=== PATIENT | male | born 1965 | race Caucasian/White ===

== ENCOUNTER 2024-05-26 10:23 | Outpatient (OUT) | payer OTHER, SELFPAY | END 2024-05-26 10:24 | disposition home or self-care (01) | LOC: PST 10:23 | PROVIDERS: Visit Provider Surgery | DX: Z12.11 Encounter for screening for malignant neoplasm of colon (principal) ==

== ENCOUNTER 2024-06-16 06:15 | Day surgery (SDC) | payer OTHER, SELFPAY ==
[2024-06-16 06:25] VITALS: BP 141/99; PULSE 91; TEMP 36.3; O2SAT 95; BMI 27.4
[2024-06-16] MEDS: 0.9 % SODIUM CHLORIDE 500 ML 50 ML IV ×2 (06:56→07:41)
[2024-06-16 08:00] VITALS: BP 112/65; PULSE 79; TEMP 36.9; O2SAT 97
--- NOTE | 2024-06-16 08:03 | W.PM.PROCNOT ---
Date of procedure: 06/16/24 Pre-op diagnosis: screening colonoscopy Post-op diagnosis: other (polypectomy x2) Procedure: Previous colonoscopy: 2020 procedure: colonoscopy with cold snare polypectomy x2 in ascending colon The patient was given IV conscious sedation.? The patient's SPO2 remained above 90% throughout the procedure. The colonoscope was inserted per rectum and advanced under direct vision to the cecum without difficulty.? The prep was good.? Findings: Terminal ileum os: normal Cecum/Ascending colon: two small sub centimeter polyps at 110 and 120 cm removed completely via cold snare biopsy forceps Transverse colon: normal Descending/Sigmoid colon: normal Rectum/Anus: examined in normal and retroflexed positions and was normal Withdrawal Time was (minutes): 20 The colon was decompressed and the scope was removed.? The patient tolerated the procedure well. Recommendations/Plan: 1.? Lifestyle and dietary modifications as discussed 2.? F/U Biopsies 3.? F/U in 5 years for repeat c-scope, pending biopsy results 4.? Discussed with the family Anesthesia: MAC Surgeon: Franklyn Tomlin Estimated blood loss (mL): 3 Pathology: other (110cm and 120cm ascending colon polyp ) Condition: stable Disposition: PACU
[2024-06-16 08:15] VITALS: BP 126/89; PULSE 90; TEMP 36.8; O2SAT 97
[2024-06-16 08:30] VITALS: BP 120/96; PULSE 95; TEMP 36.8; O2SAT 96
== END 2024-06-16 08:30 | disposition home or self-care (01) ==
PROVIDERS: PCP Family Medicine; Visit Provider Surgery
PROC: (CPT 812; principal; 2024-06-16 07:30)
DX: Z12.11 Encounter for screening for malignant neoplasm of colon (principal); Z86.0100 Personal history of colon polyps, unspecified; D12.2 Benign neoplasm of ascending colon; R31.0 Gross hematuria; I48.91 Unspecified atrial fibrillation
CPT/HCPCS: 45385; 88305; J2704